=== PATIENT | female | born 1955 | race Caucasian/White ===

== ENCOUNTER 2022-01-12 09:23 | Day surgery (SDC) | payer OTHER ==
[~2022-01-12] VITALS: Ht 154.9 cm; Wt 92.1 kg
[2022-01-12] MEDS ORDERED: fentaNYL citrate 0.05 MG/ML VIAL ONE (12:15)
[2022-01-12] MEDS ORDERED: MIDAZOLAM 5 MG/5 ML VIAL ONE (12:15)
== END 2022-01-12 13:40 | disposition home or self-care (01) ==
LOC: MDS 09:23 → MMU 09:24 → MDS 13:40
PROVIDERS: ATTEND Internal Medicine Gastroenterology
DX: R10.13 Epigastric pain (principal); K44.9 Diaphragmatic hernia without obstruction or gangrene; E03.9 Hypothyroidism, unspecified; E78.5 Hyperlipidemia, unspecified; I25.2 Old myocardial infarction; Z90.710 Acquired absence of both cervix and uterus; Z90.49 Acquired absence of other specified parts of digestive tract; Z79.899 Other long term (current) drug therapy; Z20.822 Contact with and (suspected) exposure to COVID-19
CPT/HCPCS: 36415; 43239; 86677; 87426; J2250; J3010

== ENCOUNTER 2024-06-05 09:06 | Day surgery (SDC) | payer OTHER, MEDICAID ==
[~2024-06-05] VITALS: Ht 152.4 cm; Wt 89.4 kg
[2024-06-05] MEDS ORDERED: MIDAZOLAM 2 MG/2 ML VIAL ONE (11:05)
[2024-06-05] MEDS ORDERED: fentaNYL citrate 0.05 MG/ML VIAL ONE (11:06)
[2024-06-05] MEDS ORDERED: LIDOCAINE 2% 100 MG/5 ML UJET TP ONE (11:06)
== END 2024-06-05 13:20 | disposition home or self-care (01) ==
LOC: MOR 09:06 → MMU 09:09 → MOR 13:20
PROVIDERS: ATTEND Internal Medicine Gastroenterology
DX: Z12.11 Encounter for screening for malignant neoplasm of colon (principal); E11.9 Type 2 diabetes mellitus without complications; Z90.710 Acquired absence of both cervix and uterus; Z80.0 Family history of malignant neoplasm of digestive organs; Z90.49 Acquired absence of other specified parts of digestive tract; Z86.0100 Personal history of colon polyps, unspecified
CPT/HCPCS: 43235; 82948; G0105; J2250; J3010